=== PATIENT | female | born 1980 | race Caucasian/White ===

== ENCOUNTER 2020-01-09 19:44 | Emergency (ER) | payer OTHER, SELFPAY ==
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
--- NOTE | ~2020-01-09 | XR_ITS ---
XR ankle RT 2V 01/09/2020 20:56 INDICATION: Right ankle pain PROCEDURE: 2 views right ankle COMPARISON: No prior studies for comparison. FINDINGS: Fracture, dislocation or subluxation is not identified. The soft tissues appear within norm al limits. No foreign bodies are identified. IMPRESSION: 1: NO ACUTE BONE OR JOINT ABNORMALITY IDENTIFIED. Reviewed, dictated and finalized at location A.
[2020-01-09 19:54] VITALS: BP 126/81; PULSE 97; RESP 20; TEMP 36.8; O2SAT 98
[2020-01-09] MEDS: KETOROLAC 30 MG/ML VIAL (*BKC) IV PUSH (20:08)
[2020-01-09] MEDS: SODIUM CHLORIDE 0.9% IV 1,000 ML 999 ML IV CONT (20:08)
[2020-01-09 20:22] LABS: Hemoglobin 11.5 g/dL (12.0-15.0); Mean Corpuscular HGB Conc 32.9 g/dL (32.0-36.0); Mean Corpuscular Hemoglobin 30.7 pg (27.0-31.0); Mean Corpuscular Volume 93.6 fL (78.0-102.0); Mean Platelet Volume 9.8 fl (9.2-11.8); Platelet Count Result 315 K/mm3 (150-420); Red Blood Count 3.74 M/mm3 (4.20-5.40); Red Cell Distribution Width 15.8 % (11.6-14.4); White Blood Count 11.8 K/mm3 (4.8-10.8)
[2020-01-09 20:23] LABS: Add Urine Microscopic? YES; Appearance Urine Sl Cloudy (Clear); Bilirubin Urine Negative (Negative); Blood Urine Negative (Negative); Color Urine Yellow (Yellow); Glucose Urine UA Negative (Negative); Ketones Urine Negative (Negative); Leukocyte Esterase Ur Negative (Negative); Nitrate Urine Negative (Negative); Pregnancy On Board Control POS; Protein Urine Negative (Negative); Specific Grav Ur >= 1.030 (1.010-1.020); Urine Pregnancy Test Negative; Urobilinogen Urine 0.2 mg/dL (0.2-1.0); pH Urine 5.5 (5.0-8.0)
[2020-01-09 20:24] LABS: Specific Gravity Ur > 1.030 (1.010-1.035)
[2020-01-09 20:29] LABS: Bacteria Urine 1+ /hpf; RBC Urine None seen /hpf (0-2); Squamous Epithelial Cell Urine Many /hpf (Few); WBC Urine None seen /hpf (0-3)
[2020-01-09 20:30] LABS: Mucus Urine None seen /lpf
[2020-01-09 20:38] LABS: Alanine Aminotransferase 21 U/L (14-59); Albumin Level 3.8 g/dL (3.4-5.0); Alkaline Phosphatase 52 U/L (46-116); Anion Gap 14.8 mmol/L (7-16); Aspartate Amino Transferase 17 U/L (15-37); Blood Urea Nitrogen 14 mg/dL (7-18); Calcium 9.1 mg/dL (8.5-10.1); Carbon Dioxide 25 mmol/L (21-32); Chloride 106 mmol/L (98-108); Creatine Kinase 93 U/L (26-192); Estimated Glomerular Filt Rate > 60; Glucose 81 mg/dL (70-99); Osmolality Calculated 293 mOsm/kg (285-295); Potassium 3.8 mmol/L (3.5-5.1); Sodium 142 mmol/L (136-145); Total Protein 7.6 g/dL (6.4-8.2)
[2020-01-09 20:39] LABS: Bilirubin,Total < 0.1 mg/dL (0.00-1.00)
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
--- NOTE | 2020-01-09 21:30 | PC.NURSE ---
I L NS INFUSED AT TIME OF DISCHARGE
[2020-01-09 21:33] VITALS: BP 108/65; PULSE 84
== END 2020-01-09 21:46 | disposition home or self-care (01) ==
PROVIDERS: Emergency Provider Emergency Medicine
DX: S93.401A Sprain of unspecified ligament of right ankle, initial encounter (principal); Y04.0XXA Assault by unarmed brawl or fight, initial encounter
CPT/HCPCS: 36415; 70450; 71250; 72125; 73600; 74176; 80053; 81001; 81025; 82550; 85027; 96361; 96374; 99283; 99284; J1885; J7030

== ENCOUNTER 2020-02-01 13:37 | Emergency (ER) | payer OTHER, SELFPAY ==
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
[2020-02-01 13:53] VITALS: BP 100/68; PULSE 82; RESP 18; TEMP 37.2; O2SAT 99
== END 2020-02-01 14:14 | disposition home or self-care (01) ==
PROVIDERS: Emergency Provider Nurse Practitioner
DX: M25.561 Pain in right knee (principal)
CPT/HCPCS: 99213; G0463

== ENCOUNTER 2020-04-12 11:58 | Emergency (ER) | payer OTHER, SELFPAY ==
--- NOTE | ~2020-04-12 | XR_ITS ---
EXAMINATION: XR ankle RT 2V INDICATION: Right ankle pain TECHNIQUE: Two views of the right ankle are obtained. COMPARISON: 01/09/2020 FINDINGS: There is no fracture, dislocation, or subluxation. The bones, soft tissues, and joint space s are normal. IMPRESSION: 1. No acute osseous abnormality. Reviewed, dictated and finalized at location A.
[2020-04-12 12:09] VITALS: BP 147/92; PULSE 119; RESP 20; TEMP 36.6; O2SAT 97
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
== END 2020-04-12 13:44 | disposition left against medical advice (07) ==
PROVIDERS: Emergency Provider Emergency Medicine
DX: F10.129 Alcohol abuse with intoxication, unspecified (principal)
CPT/HCPCS: 73600; 99283

== ENCOUNTER 2020-07-08 16:31 | Emergency (ER) | payer OTHER, SELFPAY ==
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
[2020-07-08 16:38] VITALS: BP 116/72; PULSE 95; RESP 16; TEMP 37.2; O2SAT 100
[2020-07-08] MEDS: AZITHROMYCIN 250 MG TABLET 1000 MG PO (17:32)
[2020-07-08] MEDS: LIDOCAINE HCL 1% LOCAL INJ 20 ML VIAL INFILTRATE (17:32)
[2020-07-08] MEDS: cefTRIAXone 250 MG VIAL IM (17:32)
== END 2020-07-08 17:50 | disposition home or self-care (01) ==
PROVIDERS: Emergency Provider Nurse Practitioner
DX: Z20.2 Contact with and (suspected) exposure to infections with a predominantly sexual mode of transmission (principal)
CPT/HCPCS: 81003; 87491; 87591; 96372; 99214; A9270; G0463; J0696

== ENCOUNTER 2020-11-10 17:45 | Emergency (ER) | payer OTHER, SELFPAY ==
[2020-11-10 17:56] VITALS: BP 146/91; PULSE 101; RESP 18; TEMP 37.6; O2SAT 100
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
== END 2020-11-10 18:18 | disposition home or self-care (01) ==
PROVIDERS: Emergency Provider Nurse Practitioner Family
DX: H73.893 Other specified disorders of tympanic membrane, bilateral (principal)
CPT/HCPCS: 99213; G0463

== ENCOUNTER 2025-03-03 17:01 | Emergency (ER) | payer OTHER, SELFPAY ==
[2025-03-03 17:01] VITALS: BP 111/67; PULSE 90; RESP 16; TEMP 36.4; O2SAT 100
--- OUTSIDE RECORDS SUMMARY | 2025-03-03 17:09 | XMS_ITS ---
Author Organization Unknown Address [address] [place], [place] [id number] Phone Care Team Providers Care Diaper Machine Tender Name Role Phone NAVID SMITH MD Attending Unavailable Results COVID-19 [facility] - Collect Date /Time: 06/28/2022 00:28 [facility] TER ID: [id number] [address] [place], [place], [id number] LOINC: 67112-9 Test Value Unit Reference Range Code Code System Flag COVID-19 NEGATIVE NORMAL: NEGATIVE 21685-6 LOINC CBC or CBC W/O DIFF - Collec t Date/Time: 06/28/2022 00:01 [facility] TER ID: [id number] [address] [place], [place], [id number] LOINC: 49834-1 Test Value Unit Reference Range Code Code System Flag WBC 6.8 10^3/UL L=3.7 H=11.0 RBC 3.73 10^6/UL L=3.60 H=5.50 HGB 8.7 G/DL L=12.0 H=16.0 L HCT 30.0 % L=37.0 H=47.0 L MCV 80.4 FL L=78.0 H=99.0 MCH 23.3 PG L=26.0 H=34.0 L MCHC 29.0 G/DL L=32.0 H=35.0 L RDW 19.1 % L=11.3 H=15.0 H PLT 358 10^3/ML L=160 H=400 MPV 9.4 FL L=5.9 H=9.0 H COMP METABOLIC(CMP) - Colle t Date/Time: 06/28/2022 00:01 [facility] TER ID: [id number] [address] [place], [id number] LOINC: 57749-4 Test Value Unit Reference Range Code Code System Flag SODIUM 136 MMOL/L L=134 H=144 POTASSIUM 3.8 MMOL/L L=3.5 H=5.1 CHLORIDE 102 MMOL/L L=98 H=107 CO2 25 mm/Hg L=21 H=32 ANION GAP 13 MMOL/L L=7 H=16 UREA NITROGEN 10 MG/DL L=7 H=18 CREATININE 0.9 MG/DL L=0.6 H=1.3 BUN/CREA 11.1 MG/DL L=7.0 H=25.0 GLUCOSE 97 MG/DL L=74 H=126 88443-5 LOINC AGE 41 YEARS GFR 73 mL/min/BSA ALK PHOS 58 U/L L=50 H=136 TOTAL BILI 0.2 MG/DL L=0.0 H=1.0 AST(SGOT) 58 U/L L=15 H=37 H ALT(SGPT) 92 U/L L=12 H=78 H ALBUMIN 3.8 G/L L=3.4 H=5.0 TOTAL PROTEIN 7.7 G/L L=6.4 H=8.2 GLOBULIN 3.9 G/DL L=2.4 H=3.5 H A/G RATIO 1.0 L=1.1 H=2.2 L CALCIUM 9.1 MG/DL L=8.5 H=10.1 BLOOD ALCOHOL - Collect Date /Time: 06/28/2022 00:01 [facility] TER ID: [id number] [address], [id number] LOINC: 5643-2 Test Value Unit Reference Range Code Code System Flag ALCOHOL 35 MG/DL L=0 H=10 H ACETAMINOPHEN - Collect Date /Time: 06/28/2022 00:01 [facility] TER ID: [id number] [address] [place], [id number] LOINC: 3298-7 Test Value Unit Reference Range Code Code System Flag ACETAMINOPHEN 0 ug/mL L=10 H=30 L SALICYLATE - Collect Date/Ti me: 06/28/2022 00:01 [facility] TER ID: [id number] [address] [place], [id number] LOINC: 4024-6 Test Value Unit Reference Range Code Code System Flag SALICYLATE 4 MG/DL L=2 H=30 HCG QUAL(URINE) - Collect Da te/Time: 06/27/2022 23:30 [facility] TER ID: [id number] [address] [place], [id number] LOINC: Test Value Unit Reference Range Code Code System Flag UR HCG (QUAL) NEGATIVE INTERNAL QC VERIFIED YES 92853-2 LOINC URINALYSIS - Collect Date/Ti me: 06/27/2022 23:30 [facility] TER ID: [id number] [address] [place], [id number] LOINC: Test Value Unit Reference Range Code Code System Flag Spec Source CCMS Clarity Clear NORM:CLEAR Color Straw NORM:YELLOW Spec [place] 1.008 NORM:1.005-1.030 pH-U 6.0 NORM:5-8 Leuko Est NEG NORM:NEGATIVE Nitrite NEG NORM:NEGATIVE Protein NEG NORM:NEGATIVE Glucose-U NEG NORM:NEGATIVE Acetone NEG NORM:NEGATIVE Urobilinogen NEG NORM:NORM-1 Bilirubin NEG NORM:NEGATIVE Blood NEG NORM:NEGATIVE RBC NORMAL: <6/HPF WBC NORMAL: <3/HPF Bacteria NORMAL: TRACE Squamous EPI NORMAL: <6/HPF Renal EPI NORMAL: <0/HPF Trans EPI NORMAL: <0/HRF Mucous NORMAL: <2+ Amorphous NORMAL: <RARE Trichomonas NORMAL: NONE SEEN YEAST NORMAL: NONE SEEN Triple Phos NORMAL: NONE SEEN Ca Oxalate NORMAL: NONE SEEN Ca Phosphate NORMAL: NONE SEEN Uric Acid NORMAL: NONE SEEN Leucine NORMAL: NONE SEEN Cystine NORMAL: NONE SEEN Tyroxine NORMAL: NONE SEEN Hyaline NORMAL: <5 /LPF Granular NORMAL: <1 /LPF Waxy NORMAL: NONE SEEN RBCC NORMAL: NONE SEEN WBCC NORMAL: NONE SEEN DRUG SCREEN UA([facility])COMPREHE NSIVE - Collect Date/Time: 06/27/2022 23:30 [facility] ID: [id number] [address] [facility] [place], [place], [id number] LOINC: 48246-5 Test Value Unit Reference Range Code Code System Flag COCAINE NEG. NORMAL: NEGATIVE AMPHET NEG. NORMAL: NEGATIVE THC NEG. NORMAL: NEGATIVE OPIATES NEG. NORMAL: NEGATIVE PCP NEG. NORMAL: NEGATIVE METHADONE NEG. NORMAL: NEGATIVE BARBS NEG. NORMAL: NEGATIVE BENZO POS. NORMAL: NEGATIVE ECSTASY(MDMA) NEG. NORAML: NEGATIVE Social History Type Status Start Date End Date Code Code Syst em Smoking History Former smoker [id number] SNOMED CT Sex Female Hospital Discharge Instructions Should you have any questions prior to discharge, please contact a member of your healthcare team. If you have left the hospital and have any questions, please contact your primary care physician. Reason For Referral No Data Found Plan of Treatment No Data Found Encounters Encounter Diagnosis Start Date Code Code Sys tem Alcohol dependence 06/27/2022 [id number] SNOMED-CT Personal Care Team Section Performer Name Performer Role Active Date Inactive Da rahel
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
[2025-03-03 17:37] LABS: Strep Group A RT-PCR NOT DETECTED (Negative)
--- OUTSIDE RECORDS SUMMARY | 2025-03-03 17:38 | XMS_ITS | Clinical Summary ---
Author Organization [facility] Address [address] [place] [address] Phone Care Team Providers Care Superintendent Overhead Distribution Name Role Phone Andrea Gallo DPM Unavailable [...] Last Indicated MRSA 07/25/2017 07/25/2017 Insurance MEDICAID [place] Care Teams Superintendent Overhead Distribution Relationship Specialty Start Date End Date Provider, None [place] PCP - General 11/11/20 Andrea Gallo DPM Consulting Physician Podiatry 12/18/16
--- OUTSIDE RECORDS SUMMARY | 2025-03-03 17:39 | XMS_ITS ---
Author Organization Unknown Address [address] [place], [place] [id number] Phone Care Team Providers Care Director Of Content And Programming Name Role Phone NAVID SMITH MD Attending Unavailable Results COVID-19 [facility] - Collect Date /Time: 06/28/2022 00:28 [facility] TER ID: [id number] [address] [place], [place], [id number] LOINC: 89044-3 Test Value Unit Reference Range Code Code System Flag COVID-19 NEGATIVE NORMAL: NEGATIVE 30201-3 LOINC CBC or CBC W/O DIFF - Collec t Date/Time: 06/28/2022 00:01 [facility] TER ID: [id number] [address] [place], [place], [id number] LOINC: 06775-9 Test Value Unit Reference Range Code Code [...] METABOLIC(CMP) - Colle t Date/Time: 06/28/2022 00:01 [facility] TER ID: [id number] [address], [id number] LOINC: 72959-9 Test Value Unit Reference Range Code Code System Flag SODIUM 136 MMOL/L L=134 H=144 POTASSIUM 3.8 MMOL/L L=3.5 H=5.1 CHLORIDE 102 MMOL/L L=98 H=107 CO2 25 mm/Hg L=21 H=32 ANION GAP 13 MMOL/L L=7 H=16 UREA NITROGEN 10 MG/DL L=7 H=18 CREATININE 0.9 MG/DL L=0.6 H=1.3 BUN/CREA 11.1 MG/DL L=7.0 H=25.0 GLUCOSE 97 MG/DL L=74 H=126 56835-6 LOINC AGE 41 YEARS GFR 73 mL/min/BSA [...] ALCOHOL - Collect Date /Time: 06/28/2022 00:01 [facility] TER ID: [id number] [address], [id number] LOINC: 5643-2 Test Value Unit Reference Range Code Code System Flag ALCOHOL 35 MG/DL L=0 H=10 H ACETAMINOPHEN - Collect Date /Time: 06/28/2022 00:01 [facility] TER ID: [id number] [address] [place], [id number] LOINC: 3298-7 Test Value Unit Reference Range Code Code System Flag ACETAMINOPHEN 0 ug/mL L=10 H=30 L SALICYLATE - Collect Date/Ti me: 06/28/2022 00:01 [facility] TER ID: [id number] [address] [place], [id number] LOINC: 4024-6 Test Value Unit Reference Range Code Code System Flag SALICYLATE 4 MG/DL L=2 H=30 HCG QUAL(URINE) - Collect Da te/Time: 06/27/2022 23:30 [facility] TER ID: [id number] [address] [place], [id number] LOINC: Test Value Unit Reference Range Code Code System Flag UR HCG (QUAL) NEGATIVE INTERNAL QC VERIFIED YES 78115-8 LOINC URINALYSIS - Collect Date/Ti me: 06/27/2022 23:30 [facility] TER ID: [id number] [address] [place], [id number] LOINC: Test Value Unit Reference Range Code Code System Flag Spec Source CCMS Clarity Clear NORM:CLEAR Color Straw NORM:YELLOW Spec [place] 1.008 NORM:1.005-1.030 pH-U 6.0 NORM:5-8 Leuko Est [...] SEEN WBCC NORMAL: NONE SEEN DRUG SCREEN UA([facility])COMPREHE NSIVE - Collect Date/Time: 06/27/2022 23:30 [facility] ID: [id number] [address] [facility] [place], [place], [id number] LOINC: 23416-0 Test Value Unit Reference Range Code Code System Flag COCAINE NEG. NORMAL: NEGATIVE AMPHET NEG. NORMAL: NEGATIVE THC NEG. NORMAL: NEGATIVE OPIATES NEG. NORMAL: NEGATIVE PCP NEG. NORMAL: NEGATIVE METHADONE NEG. NORMAL: NEGATIVE BARBS NEG. NORMAL: NEGATIVE BENZO POS. NORMAL: NEGATIVE ECSTASY(MDMA) NEG. NORAML: NEGATIVE Social History Type Status Start Date End Date Code Code Syst em Smoking History Former smoker [id number] SNOMED CT Sex Female Hospital Discharge Instructions Should you have any questions prior to discharge, please contact a member of your healthcare team. If you have left the hospital and have any questions, please contact your primary care physician. Reason For Referral No Data Found Plan of Treatment No Data Found Encounters Encounter Diagnosis Start Date Code Code Sys tem Alcohol dependence 06/27/2022 [id number] SNOMED-CT Personal Care Team Section Performer Name Performer Role Active Date Inactive Da rahel
[2025-03-03 18:05] LABS: Influenza A QL RT-PCR Negative (Negative); Influenza B QL RT-PCR Negative (Negative); RSV RNA, RT-PCR Negative (Negative); SARS-CoV-2 RNA PCR Positive (Negative)
== END 2025-03-03 18:29 | disposition home or self-care (01) ==
PROVIDERS: Emergency Provider Internal Medicine Critical Care Medicine; Referring Provider Family Medicine
DX: U07.1 COVID-19 (principal); F17.210 Nicotine dependence, cigarettes, uncomplicated
CPT/HCPCS: 87637; 87651; 99283

== ENCOUNTER 2025-07-19 11:04 | Emergency (ER) | payer OTHER, SELFPAY ==
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
[2025-07-19 11:04] VITALS: BP 153/88; PULSE 73; RESP 16; TEMP 36.4; O2SAT 100
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
[2025-07-19] MEDS: KETOROLAC (*BKC) 60 MG/2 ML VIAL IM (11:47)
[2025-07-19 12:02] VITALS: BP 138/80; PULSE 60; RESP 16; TEMP 36.2; O2SAT 100
== END 2025-07-19 12:07 | disposition home or self-care (01) ==
PROVIDERS: Emergency Provider Emergency Medicine; Referring Provider Family Medicine
DX: M54.12 Radiculopathy, cervical region (principal); S13.4XXA Sprain of ligaments of cervical spine, initial encounter; F17.210 Nicotine dependence, cigarettes, uncomplicated; X58.XXXA Exposure to other specified factors, initial encounter
CPT/HCPCS: 72125; 96372; 99284; J1885; J7512